=== PATIENT | female | born 1995 | race Caucasian/White ===

== ENCOUNTER 2021-12-25 15:25 | Outpatient (REF) | payer MEDICAID, SELFPAY ==
[2021-12-26 14:44] LABS: COVID-19 RT-PCR UVMMC Result Positive (Negative)
== END 2021-12-25 15:26 | disposition home or self-care (01) ==
LOC: LBN 15:25
PROVIDERS: PCP Nurse Practitioner; Visit Provider Nurse Practitioner
DX: Z20.822 Contact with and (suspected) exposure to COVID-19 (principal)
CPT/HCPCS: U0003